=== PATIENT | female | born 1985 | race Caucasian/White ===

== ENCOUNTER 2018-09-27 06:08 | Inpatient (IN) ==
[2018-09-27] MEDS: LACTATED RINGERS 1,000 ML IV SCH ×4 (07:21→16:42)
[2018-09-27] MEDS ORDERED: BUTORPHANOL 2 MG/ML VIAL IV PRN (07:31)
[2018-09-27] MEDS ORDERED: ONDANSETRON 4 MG/2 ML VIAL IV PRN (07:31)
[2018-09-27] MEDS: OXYTOCIN/LR 20 UNIT/1,000 ML BAG IV SCH ×2 (07:49→21:12)
[2018-09-27 07:53] LABS: Basophils % 0.2 % (0.0-0.8); Eosinophils # 0.1 10*3/uL (0.0-0.87); Eosinophils % 0.9 % (0.00-10.9); Hematocrit 34.2 VOL% (35.7-47.0); Hemoglobin 11.4 GM/DL (12.0-16.0); Immature Granulocytes % 0.5 %; Immature Granulocytes Absolute 0.06 #; Lymphocytes # 2.2 10*3/uL (1.4-4.0); Lymphocytes % 19.6 % (21.3-54.2); Mean Corpuscular HGB Conc 33.3 GM/DL (32-36); Mean Corpuscular Hemoglobin 31 PG (27-34); Mean Corpuscular Volume 91.7 FL (87-102); Mean Platelet Volume 11.8 FL (9.6-12.0); Monocytes # 0.9 10*3/uL (0.11-0.8); Neutrophils # 7.9 10*3/uL (1.4-7.4); Neutrophils % 70.8 % (38.7-73.9); Platelet Count 194 T/CUMM (130-400); Red Blood Count 3.73 MC/CUMM (3.8-5.5); Red Cell Distribution Width 13.7 % (9.3-17.3); White Blood Count 11.1 T/CUMM (4-12)
[2018-09-27] MEDS ORDERED: NALOXONE 0.4 MG/ML VIAL IV PRN (08:43)
[2018-09-27] MEDS ORDERED: CITRIC ACID/SODIUM CITRATE 30 ML UDCUP PO ONE (08:43)
[2018-09-27] MEDS ORDERED: hydrOXYzine HCL 25 MG/1 ML VIAL IM PRN (08:43)
[2018-09-27] MEDS ORDERED: diphenhydrAMINE 50 MG/1 ML VIAL IV PRN (08:43)
[2018-09-27] MEDS ORDERED: PROMETHAZINE 25 MG/1 ML VIAL IM PRN (08:43)
[2018-09-27] MEDS ORDERED: FAMOTIDINE 20 MG/2 ML VIAL IV ONE (08:43)
[2018-09-27] MEDS: ePHEDrine 50 MG/ML AMP IV PRN ×3 (09:53→10:03)
[2018-09-27 10:25] LABS: Apearance,Urine CLEAR (Clear); Bilirubin,Urine Negative (Negative); Blood, Urine Negative (Negative); Glucose,Urine (UA) Negative (Negative); Ketones,Urine 5 mg/dL (Negative); Mucus,Urine Few /LPF (Occasional); Nitrite,Urine Negative (Negative); Protein,Urine Negative; RBC,Urine <1 /HPF (0-4); Squamous Epithelial Cell,Urine Occasional /HPF (0-10); Urine Color Yellow (Yellow); Urine Specific Gravity 1.011 (1.001-1.035); Urine Urobilinogen < 2.0 EU/DL (0.2-1.0)
[2018-09-27 10:28] LABS: Barbiturates Screen,Urine Negative (Negative); Benzodiazepines Screen,Urine Negative (Negative); Cannabinoid Screen,Urine Negative (Negative); Opiate Screen,Urine Negative (Negative); Phencyclidine Screen,Urine Negative (Negative)
[2018-09-27] MEDS ORDERED: ePHEDrine 50 MG/ML AMP IV ONE (11:27)
[2018-09-27] MEDS ORDERED: ACETAMINOPHEN 500 MG TABLET PO ONE (13:22)
[2018-09-27] MEDS ORDERED: miSOPROStol 200 MCG TABLET ONE (17:15)
[2018-09-27] MEDS ORDERED: METHYLERGONOVINE 0.2 MG/1 ML AMP ONE (17:15)
[2018-09-27] MEDS ORDERED: OXYTOCIN/LR 20 UNIT/1,000 ML BAG IV ONE (17:15)
[2018-09-27] MEDS ORDERED: TRANEXAMIC ACID 1,000 MG/10 ML VIAL ONE (17:15)
[2018-09-27] MEDS ORDERED: CARBOPROST TROMETHAMINE 250 MCG/ML AMP IM ONE (17:16)
[2018-09-27] MEDS ORDERED: HYDROCORTISONE 2.5% RECTAL CREAM 30 GM TUBE TOP PRN (19:20)
[2018-09-27] MEDS ORDERED: DIPH/TET/ACEL PERT BOOSTER VACCINE 0.5 ML VIAL IM ONE (19:20)
[2018-09-27] MEDS ORDERED: BISACODYL 10 MG SUPP RECTAL PRN (19:20)
[2018-09-27] MEDS ORDERED: BENZOCAINE 20%/MENTHOL 0.5% SPRAY 56 GM CAN TOP PRN (19:20)
[2018-09-27] MEDS ORDERED: LANOLIN 50% CREAM 0.3 OZ TUBE TOP PRN (19:20)
[2018-09-27] MEDS ORDERED: ACETAMINOPHEN 325 MG TABLET PO PRN (19:20)
[2018-09-27] MEDS ORDERED: RHO(D) IMMUNE GLOBULIN 300 MCG SYRINGE IM ONE (19:20)
[2018-09-27] MEDS ORDERED: WITCH HAZEL PADS 100/JAR TOP PRN (19:20)
[2018-09-27] MEDS: DOCUSATE SODIUM 100 MG CAPSULE PO SCH (21:55)
[2018-09-27] MEDS: IBUPROFEN 800 MG TABLET PO PRN (21:55)
[2018-09-27] MEDS: ACETAMINOPHEN/CODEINE 300-30 MG TABLET PO PRN (21:55)
[2018-09-27] MEDS: FERROUS SULFATE 325 MG TABLET PO SCH (21:55)
[2018-09-28] MEDS: ALUMINUM/MAGNES/SIMETH MAX STR 30 ML UDCUP PO PRN (02:07)
[2018-09-28 05:40] LABS: Basophils % 0.3 % (0.0-0.8); Eosinophils # 0.1 10*3/uL (0.0-0.87); Eosinophils % 0.5 % (0.00-10.9); Hematocrit 27.9 VOL% (35.7-47.0); Immature Granulocytes % 0.3 %; Immature Granulocytes Absolute 0.03 #; Lymphocytes # 1.8 10*3/uL (1.4-4.0); Lymphocytes % 15.8 % (21.3-54.2); Mean Corpuscular HGB Conc 33.7 GM/DL (32-36); Mean Corpuscular Hemoglobin 31 PG (27-34); Mean Corpuscular Volume 92.1 FL (87-102); Mean Platelet Volume 11.7 FL (9.6-12.0); Monocytes # 0.9 10*3/uL (0.11-0.8); Monocytes % 7.7 % (1.7-12.7); Neutrophils # 8.5 10*3/uL (1.4-7.4); Neutrophils % 75.4 % (38.7-73.9); Red Blood Count 3.03 MC/CUMM (3.8-5.5); Red Cell Distribution Width 13.6 % (9.3-17.3); White Blood Count 11.2 T/CUMM (4-12)
[2018-09-28 05:41] LABS: Hemoglobin 9.4 GM/DL (12.0-16.0); Platelet Count 136 T/CUMM (130-400)
[2018-09-28] MEDS: IBUPROFEN 800 MG TABLET PO PRN ×2 (07:20→17:45)
[2018-09-28] MEDS: fentaNYL 2 MCG/ROPIV 0.2% EPID 100 ML EPIDURAL SCH ×2 (08:52→08:53)
[2018-09-28] MEDS: LACTATED RINGERS 1,000 ML IV SCH ×2 (08:54→08:55)
[2018-09-28] MEDS: OXYTOCIN/LR 20 UNIT/1,000 ML BAG IV SCH (08:54)
[2018-09-28] MEDS: FERROUS SULFATE 325 MG TABLET PO SCH ×2 (09:49→20:05)
[2018-09-28] MEDS: DOCUSATE SODIUM 100 MG CAPSULE PO SCH ×2 (09:49→20:05)
[2018-09-28] MEDS: FLUCONAZOLE 100 MG TABLET PO SCH (09:50)
[2018-09-28] MEDS: ACETAMINOPHEN/CODEINE 300-30 MG TABLET PO PRN ×2 (13:01→19:14)
[2018-09-28] MEDS: CLOTRIMAZOLE 1% CREAM 15 GM TUBE TOP SCH ×2 (16:48→21:20)
[2018-09-28] MEDS ORDERED: RHO(D) IMMUNE GLOBULIN 300 MCG SYRINGE IM ONE (17:00)
[2018-09-29] MEDS: ALUMINUM/MAGNES/SIMETH MAX STR 30 ML UDCUP PO PRN (04:08)
[2018-09-29 07:33] VITALS: BP 89/47
[2018-09-29] MEDS: FERROUS SULFATE 325 MG TABLET PO SCH (09:21)
[2018-09-29] MEDS: IBUPROFEN 800 MG TABLET PO PRN (09:21)
[2018-09-29] MEDS: DOCUSATE SODIUM 100 MG CAPSULE PO SCH (09:21)
[2018-09-29] MEDS: CLOTRIMAZOLE 1% CREAM 15 GM TUBE TOP SCH (09:22)
[2018-09-29] MEDS: FLUCONAZOLE 100 MG TABLET PO SCH (09:22)
== END 2018-09-29 16:00 | disposition home or self-care (01) | DRG 560 ==
LOC: N.LDOUT 06:08 → N.LD 06:15 → N.OB 21:28
PROVIDERS: ADMIT Obstetrics & Gynecology; ATTEND Obstetrics & Gynecology